=== PATIENT | female | born 2000 | race African-American/Black ===

== ENCOUNTER 2019-07-23 10:40 | Emergency (ER) | payer MEDICAID ==
[~2019-07-23] VITALS: Ht 157.5 cm; Wt 54.0 kg
[2019-07-23 10:43] VITALS: BP 118/79
[2019-07-23] MEDS ORDERED: ACETAMINOPHEN 325MG TABLET PO ONE (11:30)
[2019-07-23] MEDS ORDERED: KETOROLAC 30MG/ML VIAL IM ONE (13:00)
== END 2019-07-23 13:31 | disposition home or self-care (01) ==
LOC: ER 10:40
DX: R04.0 Epistaxis (principal); Y08.89XA Assault by other specified means, initial encounter; Y93.9 Activity, unspecified; Y92.9 Unspecified place or not applicable
CPT/HCPCS: 70150; 99283